=== PATIENT | female | born 1985 | race Caucasian/White ===

== ENCOUNTER 2017-12-29 11:09 | Emergency (ER) | payer MEDICAID ==
[~2017-12-29] VITALS: Ht 152.4 cm; Wt 69.0 kg
[2017-12-29] MEDS ORDERED: KETOROLAC 60MG/2ML VIAL IM ONE (13:45)
[2017-12-29 13:48] VITALS: BP 132/72
== END 2017-12-29 14:07 | disposition home or self-care (01) ==
LOC: ER 12:18
DX: M54.9 Dorsalgia, unspecified (principal); M54.2 Cervicalgia; F12.10 Cannabis abuse, uncomplicated; V89.2XXA Person injured in unspecified motor-vehicle accident, traffic, initial encounter; Y93.89 Activity, other specified; Y92.89 Other specified places as the place of occurrence of the external cause; Y99.8 Other external cause status
CPT/HCPCS: 81025; 96372; 99283; J1885; Z7610

== ENCOUNTER 2021-08-06 22:11 | Emergency (ER) | payer MEDICAID ==
[~2021-08-06] VITALS: Ht 152.4 cm; Wt 78.0 kg
[2021-08-06 23:34] VITALS: BP 109/77
[2021-08-07] MEDS ORDERED: ACETAMINOPHEN 325MG TABLET PO ONE (00:30)
[2021-08-07] MEDS ORDERED: LIDOCAINE HCL/EPINEPHRINE 1%-EPI 1:100,000 20 ML VIAL INFIL ONE (02:00)
[2021-08-07] MEDS ORDERED: BACITRACIN ZINC OINT UDPKT TOP ONE (02:00)
[2021-08-07] MEDS ORDERED: SULF1TAB48 MT (02:55)
[2021-08-07] MEDS ORDERED: NAPR-1176 MT (02:55)
[2021-08-07] MEDS ORDERED: TOPUD MT (02:55)
== END 2021-08-07 03:10 | disposition home or self-care (01) ==
LOC: ER 22:11
DX: L02.412 Cutaneous abscess of left axilla (principal)
CPT/HCPCS: 10060; 81025; 99284; J3490; Z7610

== ENCOUNTER 2025-04-24 23:39 | Emergency (ER) | payer MEDICAID, OTHER ==
[~2025-04-24] VITALS: Ht 152.4 cm; Wt 85.6 kg
[~2025-04-24 23:39] MED LIST: NAPR-1176 MT; SULF1TAB48 MT; TOPUD MT
[2025-04-25 00:08] VITALS: O2SAT 98
[2025-04-25] MEDS ORDERED: ACET-2708 MT (01:35)
[2025-04-25 02:17] VITALS: BP 127/74; PULSE 66; RESP 18; TEMP 36.8; O2SAT 96
== END 2025-04-25 02:20 | disposition home or self-care (01) ==
LOC: ER 04-25 00:40
DX: M79.644 Pain in right finger(s) (principal); F12.10 Cannabis abuse, uncomplicated; Z88.5 Allergy status to narcotic agent; Z79.899 Other long term (current) drug therapy
CPT/HCPCS: 73130; 99283